=== PATIENT | female | born 1990 | race Caucasian/White ===

== ENCOUNTER 2017-07-24 14:15 | Inpatient (IN) | payer OTHER ==
[2017-07-24] MEDS ORDERED: OXYTOCIN/DEXTROSE 5%-WATER 30 UNITS/500 ML BAG IV ONE (14:32)
[2017-07-24] MEDS ORDERED: LIDOCAINE HCL 50 ML VIAL PERI PRN (14:32)
[2017-07-24] MEDS ORDERED: ONDANSETRON HCL/PF 2 MG/ML VIAL IV PRN (14:32)
[2017-07-24] MEDS ORDERED: RINGER'S SOLUTION,LACTATED 1,000 ML IV ONE (14:32)
[2017-07-24] MEDS ORDERED: PENICILLIN G POTASSIUM 5 MILLIONUNT in DEXTROSE 5 % IN WATER 100 ML IV ONE ×2 (14:32)
[2017-07-24 14:50] LABS: Hematocrit 33.9 % (37.0-47.0); Hemoglobin 11.8 gm/dL (12.5-16.0); Mean Cell Volume 87.1 fl (78-100); Mean Corpuscular Hemoglobin 30.3 pg (27-31); Mean Corpuscular Hgb Conc 34.8 g/dl (32-36); Mean Platelet Volume 9.6 fl (6.0-9.5); Neutrophil # 9.4 K/mm3 (1.3-6.0); Neutrophil % 79.8 % (42-75.0); Platelet Count 231 K/mm3 (150-450); Red Blood Count 3.89 M/mm3 (4.2-5.4); Red Cell Distribution Width 14.5 % (11.5-14.0); White Blood Count 11.8 K/mm3 (4.0-10.5)
[2017-07-24 15:08] LABS: Albumin * 2.6 gm/dl (3.4-5.0); Anion Gap 15.4 mmol/L (6.8-13.8); BUN/Creatinine Ratio 13.5 (9.0-21.6); Bilirubin, Total 0.3 mg/dL (0.0-1.1); Ca. Corrected For Albumin 9.4 mg/dL (8.4-10.2); Calcium * 8.6 mg/dL (7.9-10.9); Carbon Dioxide 22.4 mmol/L (24-32.6); Potassium 3.8 mmol/L (3.4-4.6); Total Protein 6.6 gm/dL (6.2-8.2)
[2017-07-24] MEDS: DEXTROSE 5%-LACTATED RINGERS 1,000 ML IV PRN ×2 (15:09→23:00)
[2017-07-24] MEDS: MISOPROSTOL 100 MCG TABLET VG PRN ×2 (15:27→19:40)
[2017-07-24 16:50] LABS: Random Urine Total Protein Less than 6.0 mg/dL (0-12)
[2017-07-24] MEDS: PENICILLIN G POTASSIUM 2.5 MILLIONUNT in DEXTROSE 5 % IN WATER 100 ML IV SCH ×4 (19:02→23:01)
[2017-07-24] MEDS ORDERED: BUTORPHANOL TARTRATE 2 MG/ML VIAL IV PRN (23:33)
[2017-07-25] MEDS ORDERED: NALOXONE HCL 1 MG/1 ML SYRG IV PRN (01:38)
[2017-07-25] MEDS ORDERED: ONDANSETRON HCL/PF 2 MG/ML VIAL IV PRN (01:38)
--- NOTE | 2017-07-25 01:38 | OR ---
Anesthesia Procedure Note - Anesthesia Procedure Note Date of Service: 07/25/17 Narrative: Vital Signs - Last Taken Temp 37.1 C 07/25/17 01:03 Pulse 110 H 07/25/17 01:03 Resp 18 07/25/17 01:03 BP 129/89 07/25/17 01:03 Pulse Ox 99 07/25/17 01:03 07/25/17 01:36 ANESTHESIA PROCEDURE NOTE Date of Procedure: 07/25/2017. Time of procedure: 0110. Performed by: Alex Beckett CRNA Bar Assistant: None. Preprocedure diagnosis: Active labor. Post procedure diagnosis: Same. Procedure: Insertion of labor epidural. Indications: The patient is a 26 -year-old female in active labor requesting labor epidural for pain management. Findings: See below. Details of the procedure: The patient was placed in a sitting position. DuraPrep as well as Betadine swabs -3 was applied to the patient's back. Patient was then draped in a sterile fashion. Lidocaine 1% was infiltrated to the skin and subcutaneous tissues at the level of the L3-4 interspace. The epidural space was identified using a 18-gauge Tuohy needle with loss-of- resistance technique. Epidural catheter was inserted to a depth of 11 centimeters at skin. Negative test dose was elicited using 3 mL of 1.5% preservative-free lidocaine plus epinephrine 1 200,000. The epidural catheter was then taped and secured in place. EBL: Minimal. Fluids: N/A. Specimen: N/A. Post procedure condition: The patient tolerated the procedure well. No complications were noted. Thank you for this consultation. Alex Beckett CRNA
[2017-07-25] MEDS: PENICILLIN G POTASSIUM 2.5 MILLIONUNT in DEXTROSE 5 % IN WATER 100 ML IV SCH ×12 (03:03→23:00)
[2017-07-25] MEDS: DEXTROSE 5%-LACTATED RINGERS 1,000 ML IV PRN ×3 (05:12→16:32)
[2017-07-25] MEDS: BUPIVACAINE HCL/0.9 % NACL/PF 250 ML EP PRN (08:09)
--- NOTE | 2017-07-25 10:57 | PN ---
Progess Note - Interim Narrative: 07/25/17 10:56 Patient comfortable with epidural Vital signs stable. Pitocin at 6 mu/min. FHT:150 baseline, reassuring Contractions q 2-3 min Cervix: 50/-2 Impression: Intrauterine at 37-4/7 weeks induction of labor for gestational hypertension. GBS positive-status post 6 doses of penicillin Plan: Continue present plan
--- NOTE | 2017-07-25 12:58 | PN ---
Progess Note - Interim Narrative: 07/25/17 12:57 Patient comfortable with epidural Vital signs stable. Pitocin at 6 mu/min. FHT: 135 baseline, reassuring Contractions q 2-3 min Cervix: 2-3/50/-2 Impression: Intrauterine at 37-4/7 weeks weeks. Induction of labor for gestational hypertension Plan: Continue present plan
[2017-07-26] MEDS: DEXTROSE 5%-LACTATED RINGERS 1,000 ML IV PRN ×3 (00:17→15:48)
[2017-07-26] MEDS: BUPIVACAINE HCL/0.9 % NACL/PF 250 ML EP PRN ×2 (01:11→16:25)
[2017-07-26] MEDS: PENICILLIN G POTASSIUM 2.5 MILLIONUNT in DEXTROSE 5 % IN WATER 100 ML IV SCH ×8 (03:08→15:14)
--- NOTE | 2017-07-26 14:44 | PN ---
Progess Note - Interim Narrative: 07/26/17 14:41 Patient comfortable with epidural Vital signs stable. Pitocin at 21 mu/min. FHT: 130 baseline, reassuring Contractions q 2-3 min Cervix: 5/90/-2, AROM at 1053 - clear fluid Impression: Intrauterine at 37-5/7 weeks induction of labor for gestational hypertension area group B strep positive and received over 24 hours of penicillin Plan: Continue present plan
--- NOTE | 2017-07-26 20:02 | OR ---
Operative Report - Dictated Report Narrative: Spontaneous vaginal delivery of viable male at 1842 on 07/26/2017 with Apgars 9 and 9, weighing 3569 g in OLY position. Cord clamping delayed approximately 1 minute Placenta delivered complete, intact, with three vessel cord Estimated blood loss: 150 mL Lacerations: None
[2017-07-26] MEDS ORDERED: OXYTOCIN/DEXTROSE 5%-WATER 30 UNITS/500 ML BAG IV ONE (20:20)
[2017-07-26] MEDS ORDERED: BENZOCAINE/MENTHOL 81 SPRAY CAN TP PRN (20:20)
[2017-07-26] MEDS ORDERED: GLYCERIN/WITCH HAZEL LEAF 40 APPL BOX TP PRN (20:20)
[2017-07-26] MEDS ORDERED: SENNOSIDES 8.6 MG TABLET PO PRN (20:20)
[2017-07-26] MEDS ORDERED: oxyCODONE HCL/ACETAMINOPHEN 1 TAB TABLET PO PRN (20:20)
[2017-07-26] MEDS ORDERED: BISACODYL 10 MG SUPP.RECT RC PRN (20:20)
[2017-07-26] MEDS ORDERED: HYDROCORTISONE 30 APPL TUBE TP PRN (20:20)
[2017-07-26] MEDS: IBUPROFEN 800 MG TABLET PO PRN (21:00)
[2017-07-26] MEDS: oxyCODONE HCL/ACETAMINOPHEN 1 TAB TABLET PO PRN (21:00)
[2017-07-26] MEDS: DOCUSATE SODIUM 100 MG CAPSULE PO SCH (22:39)
[2017-07-27] MEDS: oxyCODONE HCL/ACETAMINOPHEN 1 TAB TABLET PO PRN ×2 (01:48→21:03)
[2017-07-27] MEDS: IBUPROFEN 800 MG TABLET PO PRN ×2 (08:40→21:04)
[2017-07-27] MEDS: DOCUSATE SODIUM 100 MG CAPSULE PO SCH ×2 (08:40→21:03)
[2017-07-27] MEDS: PENICILLIN G POTASSIUM 2.5 MILLIONUNT in DEXTROSE 5 % IN WATER 100 ML IV SCH ×2 (10:16)
[2017-07-27] MEDS: PRENATAL VITS96/IRON FUM/FOLIC 1 TAB TABLET PO SCH (10:17)
[2017-07-27] MEDS: FERROUS SULFATE 325 MG TABLET PO SCH (10:17)
[2017-07-28] MEDS: oxyCODONE HCL/ACETAMINOPHEN 1 TAB TABLET PO PRN ×2 (00:04→11:31)
--- NOTE | 2017-07-28 10:31 | PN ---
Progess Note - Interim Narrative: 07/28/17 10:30 Patient seen 07/27/2017 at 12:30 Patient denies complaints. Afebrile vital signs stable. Blood pressures within normal limits Lochia wnl Abdomen - soft, nontender Uterus - firm, at umbilicus - 1 No calf tenderness Impression: day #1 - s/p spontaneous vaginal delivery. Gestational hypertension-resolved Plan: Continue routine care
[2017-07-28] MEDS: PRENATAL VITS96/IRON FUM/FOLIC 1 TAB TABLET PO SCH (10:32)
--- NOTE | 2017-07-28 10:32 | PN ---
Subjective - Date and Time Seen Date: 07/28/17 Time: 10:31 Objective - Vitals Vitals: Last Vital Signs Temp 36.2 C L 07/27/17 19:25 Pulse 88 07/27/17 19:25 Resp 16 07/27/17 19:25 BP 123/81 07/27/17 19:25 Pulse Ox 96 07/27/17 15:06 Patient denies complaints. Lochia wnl Abdomen - soft, nontender Uterus - firm, at umbilicus - 2 No calf tenderness Impression: day #2 - s/p spontaneous vaginal delivery. Gestational hypertension-resolved. Plan: Routine discharge instructions. Preeclampsia precautions. Cauti Physician Documentation - Urinary Catheter Management Urethral ([place]) Date of Insertion: 07/25/17 Time of Insertion: 08:55
[2017-07-28] MEDS: DOCUSATE SODIUM 100 MG CAPSULE PO SCH (10:33)
[2017-07-28] MEDS: FERROUS SULFATE 325 MG TABLET PO SCH (10:33)
[2017-07-28] MEDS: IBUPROFEN 800 MG TABLET PO PRN (11:30)
[2017-07-28 11:55] VITALS: BP 120/86
== END 2017-07-28 15:57 | disposition home or self-care (01) | DRG 775 ==
LOC: OB 14:15 → MS 07-27 22:16
PROVIDERS: ADMIT Obstetrics & Gynecology; ATTEND Obstetrics & Gynecology
PROC: 10E0XZZ Delivery of Products of Conception, External Approach (ICD-10-PCS; principal; 2017-07-24)
PROC: 10907ZC Drainage of Amniotic Fluid, Therapeutic from Products of Conception, Via Natural or Artificial Opening (ICD-10-PCS; 2017-07-24)
PROC: 4A1HXCZ Monitoring of Products of Conception, Cardiac Rate, External Approach (ICD-10-PCS; 2017-07-24)
PROC: 00HU33Z Insertion of Infusion Device into Spinal Canal, Percutaneous Approach (ICD-10-PCS; 2017-07-24)
DX: O13.4 Gestational [pregnancy-induced] hypertension without significant proteinuria, complicating childbirth (principal); O99.824 Streptococcus B carrier state complicating childbirth; O99.02 Anemia complicating childbirth; D64.9 Anemia, unspecified; Z3A.37 37 weeks gestation of pregnancy; Z37.0 Single live birth
CPT/HCPCS: 36415; 59025; 80053; 82570; 84156; 85025; J2405